=== PATIENT | male | born 1980 | race Caucasian/White ===

== ENCOUNTER 2020-05-03 03:52 | Emergency (ER) | payer SELFPAY ==
[2020-05-03] MEDS ORDERED: cefTRIAXone 250 MG Vial IM ONE (05:04)
[2020-05-03] MEDS ORDERED: Azithromycin 500 MG Tab PO ONE (05:05)
--- NOTE | 2020-05-03 05:21 | EDM.PDOC ---
ED HPI GENERAL MEDICAL PROBLEM - General Chief Complaint: Genitourinary Problem Stated Complaint: BLOOD IN URINE Time Seen by Provider: 05/03/20 04:00 Source of Information: Reports: Patient History Limitations: Reports: No Limitations - History of Present Illness INITIAL COMMENTS - FREE TEXT/NARRATIVE: has had right side flank pain for the past 4-5 weeks, has had lower pain , last 2-3 days pain has gotten worse and today he passed blood in the urine . no back pain, no fever or chills Onset: Today Onset Date: 05/03/20 Duration: Getting Worse Location: Reports: Abdomen Quality: Reports: Ache Severity: Mild Improves with: Reports: None Context: Reports: Activity Associated Symptoms: Reports: No Other Symptoms right side abd Pain Score (Numeric/FACES): 3 - Related Data Allergies Allergy/AdvReac Type Severity Reaction Status Date / Time Penicillins Allergy Hives Verified 09/12/13 02:48 Home Meds: Home Meds Ciprofloxacin [Ciprofloxacin HCl] 500 mg PO BID #10 tab 05/03/20 [Rx] Tamsulosin HCl [Flomax] 0.4 mg PO DAILY #30 cap.er.24h 05/03/20 [Rx] predniSONE [Prednisone] 40 mg PO DAILY #10 tablet 05/03/20 [Rx] Past Medical History - Past Health History Medical/Surgical History: Denies Medical/Surgical History Social & Family History - Tobacco Use Tobacco Use Status *Q: Current Every Day Tobacco User Years of Tobacco use: 20 Packs/Tins Daily: 0.2 - Alcohol Use Days Per Week of Alcohol Use: 1 Number of Drinks Per Day: 10 Total Drinks Per Week: 10 - Recreational Drug Use Recreational Drug Use: No ED ROS GENERAL - Review of Systems Review Of Systems: See Below Constitutional: Reports: No Symptoms HEENT: Reports: No Symptoms Respiratory: Reports: No Symptoms Cardiovascular: Reports: No Symptoms Endocrine: Reports: No Symptoms GI/Abdominal: Reports: No Symptoms Musculoskeletal: Reports: No Symptoms Skin: Reports: No Symptoms Neurological: Reports: No Symptoms Psychiatric: Reports: No Symptoms Hematologic/Lymphatic: Reports: No Symptoms ED EXAM, RENAL/ - Physical Exam Exam: See Below Exam Limited By: No Limitations General Appearance: Alert, WD/WN, No Apparent Distress Eye Exam: Bilateral Eye: EOMI Ears: Normal External Exam Nose: Normal Inspection Throat/Mouth: Normal Inspection Head: Atraumatic, Normocephalic Neck: Supple, Non-Tender Respiratory/Chest: No Respiratory Distress, Lungs Clear Cardiovascular: Normal Peripheral Pulses, Regular Rate, Rhythm GI/Abdominal: Soft, Non-Tender, Tender Back Exam: Full Range of Motion Extremities: Normal Inspection, Normal Range of Motion Neurological: Alert, Oriented, CN II-XII Intact Psychiatric: Normal Affect Skin Exam: Warm, Dry, Intact Lymphatic: No Adenopathy Course - Vital Signs Last Recorded V/S: Last Vital Signs Temp 36.9 C 05/03/20 03:52 Pulse 86 05/03/20 03:52 Resp 15 05/03/20 03:52 BP 143/94 H 05/03/20 03:52 Pulse Ox 100 05/03/20 03:52 - Orders/Labs/Meds Orders: Active Orders 24 hr Category Date Time Status CHLAMYDIA/GC AMPLIFICATION Routine Lab 05/03/20 04:05 Received Labs: Laboratory Tests 05/03/20 05/03/20 Range/Units 04:05 04:35 Urine Color Cancelled Yellow Urine Appearance Cancelled Clear Urine pH Cancelled 8.0 H Ur Specific [place] Cancelled 1.010 Urine Protein Cancelled Negative Urine Glucose (UA) Cancelled Normal Urine Ketones Cancelled Negative Urine Occult Blood Cancelled Moderate H Urine Nitrite Cancelled Negative Urine Bilirubin Cancelled Negative Urine Urobilinogen Cancelled Normal Ur Leukocyte Esterase Cancelled Negative U Hyaline Cast (Auto) Cancelled Urine RBC Cancelled 30-40 H Urine WBC Cancelled 5-10 H Ur Epithelial Cells Cancelled Ur Squamous Epith Cells Cancelled Few H Ur Renal Epithelial Cell Cancelled Calcium Oxalate Crystal Cancelled Uric Acid Crystals Cancelled Triple Phos Crystals Cancelled Other Crystals Cancelled Amorphous Sediment Cancelled Urine Bacteria Cancelled Few H Fine Granular Casts Cancelled Coarse Granular Casts Cancelled Waxy Casts Cancelled RBC Casts Cancelled WBC Casts Cancelled Urine Mucus Cancelled Urine Trichomonas Cancelled Urine Yeast Cancelled Urine Sperm Cancelled Ur Oval Fat Bodies Cancelled Urinalysis Comment Cancelled Meds: Medications Discontinued Medications Generic Name Dose Route Start Last Admin Trade Name Freq PRN Reason Stop Dose Admin Azithromycin 1,000 mg 05/03/20 05:05 05/03/20 05:12 Zithromax PO 05/03/20 05:06 1,000 mg ONETIME ONE Administration Ceftriaxone Sodium 250 mg 05/03/20 05:04 05/03/20 05:12 Rocephin IM 05/03/20 05:05 250 mg ONETIME ONE Administration Departure - Departure Time of Disposition: 05:30 Disposition: Home, Self-Care 01 Condition: Fair Clinical Impression: Kidney stone, Hematuria syndrome - Discharge Information *PRESCRIPTION DRUG MONITORING PROGRAM REVIEWED*: Not Applicable *COPY OF PRESCRIPTION DRUG MONITORING REPORT IN PATIENT SAWYER: Not Applicable Instructions: Kidney Stones, [id number], Urinary Tract Infection, Adult, [id number] Referrals: Sidney Mark MD [Primary Care Provider] - Forms: ED Department Discharge, ED Return to Work/School Form Additional Instructions: 1) Increase fluid intake 2) Strain urine and obtain stone for analysis 3) If you have symptoms again , you need to present for CT of the abdomen Sepsis Event Note (ED) - Evaluation Sepsis Screening Result: No Definite Risk - Focused Exam Vital Signs: Vital Signs Temp Pulse Resp BP Pulse Ox 05/03/20 03:52 36.9 C 86 15 143/94 H 100 - My Orders Last 24 Hours: My Active Orders 05/03/20 04:05 CHLAMYDIA/GC AMPLIFICATION Routine - Assessment/Plan Last 24 Hours: My Active Orders 05/03/20 04:05 CHLAMYDIA/GC AMPLIFICATION Routine
[2020-05-06 09:10] LABS: CHLAMYDIA TRACHOMATIS, NAA Negative (Negative); NEISSERIA GONORRHOEAE, NAA Negative (Negative)
== END 2020-05-03 05:35 | disposition home or self-care (01) ==
LOC: FB.ED 03:52
DX: N20.0 Calculus of kidney (principal); Z88.0 Allergy status to penicillin; Z20.822 Contact with and (suspected) exposure to COVID-19
CPT/HCPCS: 81001; 87491; 87591; 96372; 99284; A9270; J0696

== ENCOUNTER 2024-01-10 07:07 | Emergency (ER) | payer SELFPAY ==
[2024-01-10 07:38] LABS: BILIRUBIN,URINE NEGATIVE (NEGATIVE); GLUCOSE,URINE NORMAL (NORMAL); KETONES,URINE NEGATIVE (NEGATIVE); LEUKOCYTE ESTERASE,URINE LARGE (NEGATIVE); NITRITE,URINE NEGATIVE (NEGATIVE); OCCULT BLOOD,URINE LARGE (NEGATIVE); PROTEIN,URINE NEGATIVE (NEGATIVE); UROBILINOGEN,URINE NORMAL (NEGATIVE)
[2024-01-10 07:42] LABS: APPEARANCE,URINE CLOUDY (CLEAR); BACTERIA,URINE MANY (NS); COLOR,URINE YELLOW (YELLOW); RBC,URINE 20-30 (0-5); SQUAMOUS EPITHELIAL CELLS,UR FEW (NS,R,O); WBC,URINE >100 (0-5)
[2024-01-10] MEDS: cefTRIAXone 500 MG Vial IM ONE (08:14)
[2024-01-12 14:12] LABS: APTIMA MEDIA TYPE Urine; C. TRACHOMATIS BY TMA Negative (Negative); N. GONORRHOEAE BY TMA Positive (Negative); SPECIMEN SOURCE Urine
== END 2024-01-10 07:50 | disposition home or self-care (01) ==
LOC: FB.ED 07:07
DX: N39.0 Urinary tract infection, site not specified (principal); F17.210 Nicotine dependence, cigarettes, uncomplicated; Z88.0 Allergy status to penicillin
CPT/HCPCS: 81001; 87086; 87491; 87591; 99283